=== PATIENT | female | born 2000 | race Caucasian/White ===

== ENCOUNTER 2019-11-27 12:33 | Emergency (ER) | payer OTHER ==
[~2019-11-27] VITALS: Ht 177.8 cm; Wt 77.0 kg
[2019-11-27] MEDS ORDERED: IBUP-577 PO (12:39)
--- NOTE | 2019-11-27 13:04 | PHYS DOC ---
Past History Past Medical History: GERD Past Surgical History: Tonsillectomy, Other Additional Past Surgical Histo: IUD 1-16; RIGHT FOOT SURGERY; ADNOIDECTOMY; WISDOM TEETH REMOVED Alcohol Use: None Adult General Chief Complaint Chief Complaint: ABDOMINAL PAIN [facility] HPI Patient is a 19-year-old female who presents with complaint of lower abdominal cramping with vaginal spotting for about the last 3 months. Patient indicates that she does have an IUD in placed and it was placed back in November 2015. She states that at times pain gets as high as 7 out of 10 but currently is a 3 out of 10. She denies any nausea, vomiting or diarrhea. She denies any fever. Patient is not aware of any exacerbating or alleviating factors.[] Review of Systems Review of Systems Constitutional: Denies fever or chills [] Respiratory: Denies cough or shortness of breath [] Cardiovascular: No additional information not addressed in HPI [] GI: Complains of lower abdominal pain/cramping without vomiting or diarrhea [] Integument: Denies rash or skin lesions [] Neurologic: Denies headache, focal weakness or sensory changes [] All other systems were reviewed and found to be within normal limits, except as documented in this note. Allergies Allergies Allergies Coded Allergies Type Severity Reaction Last Updated Verified No Known Drug Allergies 11/27/19 No Physical Exam Physical Exam Constitutional: Well developed, well nourished, no acute distress, non-toxic appearance. [] HENT: Normocephalic, atraumatic, bilateral external ears normal, oropharynx moist, no oral exudates, nose normal. [] Eyes: PERRLA, EOMI, conjunctiva normal, no discharge. [] Neck: Normal range of motion, no tenderness, supple. [] Cardiovascular: Regular rate and rhythm[] Lungs & Thorax: Bilateral breath sounds clear to auscultation [] Abdomen: Bowel sounds normal, soft, no tenderness. [] Skin: Warm, dry, no erythema, no rash. [] Extremities: No tenderness, no cyanosis, no clubbing, ROM intact. [] Neurologic: Alert and oriented X 3, no focal deficits noted. [] Current Patient Data Vital Signs Vital Signs Date Time Temp Pulse Resp B/P (MAP) Pulse Ox O2 Delivery O2 Flow Rate FiO2 11/27/19 12:40 98.6 71 18 152/82 (105) 100 Room Air EKG EKG [] Radiology/Procedures Radiology/Procedures [] Impressions: COMPARISON: None available FINDINGS: The uterus measures 7.8 x 2.5 x 4.4 cm. The endometrium is 4 mm in thickness.The right ovary measures 1.8 x 2.5 x 3.8 cm. The left ovary measures 3.0 x 2.0 x 2.9 cm. There is a 1.4 cm cystic structure identified in the left ovary could be a follicle containing some echogenicity or a small hemorrhagic cyst. Blood flow identified in the right and left ovaries. IMPRESSION: 1. A 1.4 cm cystic structure containing echogenicity identified in the left ovary could be follicle containing echogenicity or hemorrhagic cyst. Electronically signed by: Oliver Gonzalez MD (11/27/2019 2:01 PM) [facility] Course & Med Decision Making Course & Med Decision Making Pertinent Labs and Imaging studies reviewed. (See chart for details) [] Dragon Disclaimer Dragon Disclaimer This electronic medical record was generated, in whole or in part, using a voice recognition dictation system. Departure Departure: Impression: Primary Impression: Hemorrhagic ovarian cyst Disposition: HOME, SELF-CARE Condition: STABLE Referrals: PCP,UNKNOWN (PCP) Patient Instructions: Ovarian Cyst Scripts Tramadol Hcl (TRAMADOL HCL) 50 Mg Tablet 50 MG PO PRN Q6HRS PRN for PAIN, #12 TAB Prov: VITA YOUNGER Jr. DO 11/27/19 VITA YOUNGER Jr. DO Nov 27, 2019 13:04
--- NOTE | 2019-11-27 14:04 | RAD ---
Examination: Ultrasound pelvis HISTORY: History of pelvic pain with vaginal bleeding COMPARISON: None available FINDINGS: The uterus measures 7.8 x 2.5 x 4.4 cm. The endometrium is 4 mm in thickness.The right ovary measures 1.8 x 2.5 x 3.8 cm. The left ovary measures 3.0 x 2.0 x 2.9 cm. There is a 1.4 cm cystic structure identified in the left ovary could be a follicle containing some echogenicity or a small hemorrhagic cyst. Blood flow identified in the right and left ovaries. IMPRESSION: 1. A 1.4 cm cystic structure containing echogenicity identified in the left ovary could be follicle containing echogenicity or hemorrhagic cyst. Electronically signed by: Oliver Gonzalez MD (11/27/2019 2:01 PM) [place] [id number]
[2019-11-27] MEDS ORDERED: TRAM50TA PO (14:15)
[2019-11-27 14:21] VITALS: BP 138/71
== END 2019-11-27 14:20 | disposition home or self-care (01) ==
LOC: ER 12:33
DX: N83.202 Unspecified ovarian cyst, left side (principal); K21.9 Gastro-esophageal reflux disease without esophagitis; Z90.49 Acquired absence of other specified parts of digestive tract
CPT/HCPCS: 76856; 99284

== ENCOUNTER 2020-02-19 11:35 | Emergency (ER) | payer OTHER ==
[~2020-02-19] VITALS: Ht 177.8 cm; Wt 75.0 kg
[~2020-02-19 11:35] MED LIST: IBUP-577 PO; TRAM50TA PO
[2020-02-19 12:22] LABS: BACTERIA,URINE FEW /HPF (0-FEW); BILIRUBIN,URINE NEG (NEG); CLARITY,URINE CLEAR; COLOR,URINE STRAW; GLUCOSE,URINE NEG (NEG); NITRITE,URINE NEG (NEG); RBC,URINE 0 /HPF (0-2); SQUAMOUS EPITHELIAL CELL,UR FEW /LPF; UROBILINOGEN,URINE 0.2 mg/dL (0.2 mg/dL); WBC,URINE OCC /HPF (0-4)
[2020-02-19 12:23] LABS: U PREG PATIENT NEGATIVE (NEG)
--- NOTE | 2020-02-19 12:33 | RAD ---
PELVIS COMPLETE History: Left pelvic pain, history of cyst Comparison: November 27, 2019 Findings: Multiple transabdominal sonographic images of the pelvis are submitted. Uterus measured 7.8 x 4.4 x 3.2 cm. There is IUD present in the endometrial cavity. Right ovary measured 3.5 x 3.3 x 2 cm, normal low resistance vascularity. Left ovary measured 6.3 x 5.6 x 5.1 cm. There is a hypoechoic lesion of the left ovary about 4.9 x 4.6 x 5 cm. This is larger as previously 1.4 cm, nearly anechoic. There is normal low resistance vascularity and color flow of the left ovary. No significant free fluid is demonstrated. Impression: 1. There is left ovarian cyst up to 5 cm which is larger than previous exam, no free fluid. There is normal vascularity of adjacent left ovarian tissue. Electronically signed by: Darwin Mckay MD (02/19/2020 12:30 PM) [id number]
--- NOTE | 2020-02-19 13:01 | PHYS DOC ---
Past History Past Medical History: GERD Past Surgical History: Tonsillectomy, Other Additional Past Surgical Histo: IUD 1-16; RIGHT FOOT SURGERY; ADNOIDECTOMY; WISDOM TEETH REMOVED Alcohol Use: None Adult General Chief Complaint Chief Complaint: ABDOMINAL PAIN HPI HPI Patient is a 19 year old female who presents with left pelvic pain. She states this feels very similar to when she has had an ovarian cyst previously. She denies any trauma, vaginal bleeding, vaginal pain, dysuria, hematuria, swelling. She has no other complaints. She denies any fever, nausea, vomiting, upper abdominal pain, cough, URI symptoms, decreased appetite. She denies any chance that she could have any sexually transmitted diseases including gonorrhea, chlamydia, trichomonas. She currently has an IUD in place. Review of Systems Review of Systems General: Denies fever, chills, sweats, fatigue Eyes: Denies drainage, blurred vision HENT: Denies rhinorrhea, sore throat Respiratory: Denies cough, shortness of breath, wheezing Cardiac: Denies edema, palpitations, chest pain GI: Denies abdominal pain, N/V MSK: Denies back pain, neck pain Skin: Denies rash, jaundice Neuro: Denies headache, dizziness Psychiatric: Denies SI/HI All other systems were reviewed and found to be within normal limits, except as documented in this note. Allergies Allergies Allergies Coded Allergies Type Severity Reaction Last Updated Verified No Known Drug Allergies 11/27/19 No Physical Exam Physical Exam Constitutional: Well developed, well nourished, Cooperative, NAD, non-toxic appearing HEENT: Normocephalic, atraumatic, oropharynx moist, EOMI, PERRL, no drainage from eyes, normal conjunctiva Neck: Supple, normal range of motion, no stridor Cardiovascular: RRR, 2+ radial pulses bilaterally, no edema Respiratory: CTA bilaterally, no respiratory distress, no wheezing/crackles Abdomen: Soft, nontender, nondistended, no masses Skin: Warm, dry, intact Extremities: No obvious deformities Neurologic: Alert and Oriented x3, motor and sensory function grossly normal, no focal deficits Psychologic: Normal affect, normal judgment, normal mood. No SI/HI Current Patient Data Vital Signs Vital Signs Date Time Temp Pulse Resp B/P (MAP) Pulse Ox O2 Delivery O2 Flow Rate FiO2 02/19/20 11:45 98.1 86 20 150/89 (109) 100 Room Air Lab Results Laboratory Tests Test 02/19/20 11:55 Urine Collection Type Unknown Urine Color Straw Urine Clarity Clear Urine pH 8.0 Urine Specific [place] 1.015 Urine Protein Neg (NEG-TRACE) Urine Glucose (UA) Neg mg/dL (NEG) Urine Ketones (Stick) Neg mg/dL (NEG) Urine Blood Neg (NEG) Urine Nitrite Neg (NEG) Urine Bilirubin Neg (NEG) Urine Urobilinogen Dipstick 0.2 mg/dL (0.2 mg/dL) Urine Leukocyte Esterase Neg (NEG) Urine RBC 0 /HPF (0-2) Urine WBC Occ /HPF (0-4) Urine Squamous Epithelial Cells Few /LPF Urine Bacteria Few /HPF (0-FEW) Urine Test Negative (NEG) EKG EKG [] Radiology/Procedures Radiology/Procedures Pelvis ultrasound shows a 5 cm ovarian cyst without torsion [] Course & Med Decision Making Course & Med Decision Making Pertinent Labs and Imaging studies reviewed. (See chart for details) Patient is 19-year-old female presents to the emergency room with pelvic pain. She has a history of cysts that are large. Ultrasound was ordered to evaluate for ovarian cyst with torsion. Patient does have a cyst but no signs of torsion. She is otherwise well-appearing. She will be discharged home to follow-up with her [employer]S OFFICER. Patient's test results and vitals while in the ED were fully reviewed and discussed with the patient. Patient is stable and at this time does not need admission to the hospital. We have discussed strict return precautions and the importance of following up with their Primary Care Physician. Patient stated understanding and was given an opportunity to ask any questions. Dragon Disclaimer Dragon Disclaimer This electronic medical record was generated, in whole or in part, using a voice recognition dictation system. Departure Departure: Impression: Primary Impression: Ovarian cyst, left Disposition: HOME, SELF-CARE Condition: STABLE Referrals: BETSY HERNANDEZ (PCP) Patient Instructions: Ovarian Cyst SHABANA WHATLEY MD Feb 19, 2020 13:01
[2020-02-19] MEDS: KETOROLAC 30 MG/ML VIAL. IM ONE (13:08)
[2020-02-19 13:10] VITALS: BP 142/88
== END 2020-02-19 13:10 | disposition home or self-care (01) ==
LOC: ER 11:35
DX: N83.202 Unspecified ovarian cyst, left side (principal); K21.9 Gastro-esophageal reflux disease without esophagitis
CPT/HCPCS: 76856; 81001; 81025; 96372; 99284; J1885

== ENCOUNTER 2020-02-21 00:43 | Emergency (ER) | payer OTHER ==
[~2020-02-21] VITALS: Ht 177.8 cm; Wt 78.0 kg
[2020-02-21 00:57] VITALS: BP 151/91
--- NOTE | 2020-02-21 01:21 | PHYS DOC ---
Past History Past Medical History: GERD, Ovarian Cyst Past Surgical History: Tonsillectomy, Other Additional Past Surgical Histo: IUD 1-16; RIGHT FOOT SURGERY; ADNOIDECTOMY; WISDOM TEETH REMOVED Alcohol Use: None General Adult EDM: Chief Complaint: Abdominal pain HPI: HPI: 19-year-old female presents with lower abdominal pain. Patient was seen in this emergency room 2 days ago. She was diagnosed with an ovarian cyst. She has continued to have pain since leaving. She presents in the middle the night because the pain has increased for the last 2 to 3 hours. She is unable to sleep and they told her to come back of her symptoms got worse. She denies fever chills. She has had no nausea or vomiting. No vaginal discharge or bleeding. Review of Systems: Review of Systems: Constitutional: Denies fever or chills Eyes: Denies change in visual acuity HENT: Denies nasal congestion or sore throat Respiratory: Denies cough or shortness of breath Cardiovascular: Denies chest pain or edema GI: Lower abdominal pain. Denies nausea, vomiting, bloody stools or diarrhea : Denies dysuria Musculoskeletal: Denies back pain or joint pain Integument: Denies rash Neurologic: Denies headache, focal weakness or sensory changes Endocrine: Denies polyuria or polydipsia Lymphatic: Denies swollen glands Psychiatric: Denies depression or anxiety Heart Score: Risk Factors: Risk Factors: DM, Current or recent (<one month) smoker, HTN, HLP, family history of CAD, obesity. Risk Scores: Score 0 - 3: 2.5% MACE over next 6 weeks - Discharge Home Score 4 - 6: 20.3% MACE over next 6 weeks - Admit for Clinical Observation Score 7 - 10: 72.7% MACE over next 6 weeks - Early Invasive Strategies Current Medications: Current Meds: Current Medications Medications (Trade) Dose Ordered Sig/[facility] Start Time Stop Time Status Last Admin Dose Admin Morphine Sulfate (Morphine 2mg Syringe) 2 mg 1X ONCE 02/21/20 01:15 02/21/20 01:16 UNV Ondansetron HCl (Zofran) 4 mg 1X ONCE 02/21/20 01:15 02/21/20 01:16 UNV Sodium Chloride 1,000 ml @ 1,000 mls/hr 1X ONCE 02/21/20 01:15 02/21/20 02:14 UNV Allergies: Allergies: Allergies Coded Allergies Type Severity Reaction Last Updated Verified No Known Drug Allergies 11/27/19 No Physical Exam: PE: Constitutional: Well developed, well nourished, no acute distress, non-toxic appearance. [] HENT: Normocephalic, atraumatic, bilateral external ears normal, oropharynx moist, no oral exudates, nose normal. [] Eyes: PERRLA, EOMI, conjunctiva normal, no discharge. [] Neck: Normal range of motion, no tenderness, supple, no stridor. [] Cardiovascular:Heart rate regular rhythm, no murmur [] Lungs & Thorax: Bilateral breath sounds clear to auscultation [] Abdomen: Bowel sounds normal, soft, lower tenderness with mild guarding, no masses, no pulsatile masses. [] Skin: Warm, dry, no erythema, no rash. [] Back: No tenderness, no CVA tenderness. [] Extremities: No tenderness, no cyanosis, no clubbing, ROM intact, no edema. [] Neurologic: Alert and oriented X 3, normal motor function, normal sensory function, no focal deficits noted. [] Psychologic: Affect normal, judgement normal, mood normal. [] Current Patient Data: Vital Signs: Vital Signs Date Time Temp Pulse Resp B/P (MAP) Pulse Ox O2 Delivery O2 Flow Rate FiO2 02/21/20 00:57 98.6 94 20 151/91 (111) 100 Room Air EKG: EKG: [] Radiology/Procedures: Radiology/Procedures: [] Impressions: EXAM: ULTRASOUND PELVIS INDICATION: Pelvic cyst. Last menstrual period was 02/02/2020. COMPARISON: 02/19/2020, 11/27/2019. TECHNIQUE: Transabdominal sonography was performed. FINDINGS: The uterus measures 7.8 x 4.5 x 4.3 cm. cm. The endometrium measures 0.9 cm. There is no focal myometrial abnormality The right ovary measures 4 x 2.9 x 2.1 cm. Flow seen to the right ovary. The left ovary measures 7.1 x 6.4 x 6.5 cm. Left ovarian cystic structure measures 5.8 x 5.2 x 4.9 cm, previously 5 x 4.9 x 4.6 cm. Flow is seen to the left ovary. There is no free fluid. IMPRESSION: 1. Left ovarian cystic structure measures 5.8 cm, intervally increased in size. Recommend short interval follow-up sonographic imaging or further evaluation with MRI, based on gynecologic evaluation. 2. Previously seen IUD is not definitively delineated on this examination, possibly technical or interval removal. Electronically signed by: Clifton Jones MD (02/21/2020 2:44 AM) [facility] DI[facility]ATED AND SIGNED BY: CLIFTON JONES MD DATE: 02/21/204 CC: WILMER TAFOYA DO; BETSY HERNANDEZ ~ Course & Med Decision Making: Course & Med Decision Making Pertinent Labs and Imaging studies reviewed. (See chart for details) The patient's labs are unremarkable. Her urinalysis is negative for infection. She is not . Ultrasound is pending. I have given her 4 mg of Zofran and 2 mg of morphine. The patient continues to have a left ovarian cyst that is larger. She does not have torsion. I have strongly advised that she follow-up with her ship wirer on Sunday to discuss management options for this cyst. She is stable for discharge at this time. I will discharge her with a [place] 5/325 prescription. [] Dragon Disclaimer: Dragon Disclaimer: This electronic medical record was generated, in whole or in part, using a voice recognition dictation system. Departure Departure: Impression: Primary Impression: Ovarian cyst Qualified Codes: N83.202 - Unspecified ovarian cyst, left side Disposition: HOME, SELF-CARE Condition: STABLE Referrals: BETSY HERNANDEZ (PCP) Patient Instructions: Ovarian Cyst, [id number] Scripts Hydrocodone Bit/Acetaminophen (NORCO 5-325 TABLET) 1 Each Tablet 1 TAB PO PRN Q6HRS PRN for PAIN, #14 TAB 0 Refills Prov: WILMER TAFOYA DO 02/21/20 WILMER TAFOYA DO Feb 21, 2020 01:21
[2020-02-21] MEDS ORDERED: IV NORMAL SALINE 1,000ML 1,000 ML IV ONE (01:30)
[2020-02-21] MEDS ORDERED: MORPHINE SULFATE 2 MG/ML DISP.SYRIN. IV ONE (01:30)
[2020-02-21] MEDS ORDERED: ONDANSETRON PF 4 MG/2 ML VIAL. IVP ONE (01:30)
[2020-02-21 02:14] LABS: CALCIUM 8.9 mg/dL (8.5-10.1); CREATININE 0.8 mg/dL (0.6-1.0); GFR 90.5; POTASSIUM 3.4 mmol/L (3.5-5.1)
[2020-02-21 02:17] LABS: CLARITY,URINE CLEAR; COLOR,URINE STRAW
[2020-02-21 02:18] LABS: BILIRUBIN,URINE NEG (NEG); GLUCOSE,URINE NEG (NEG); NITRITE,URINE NEG (NEG); RBC,URINE 0 /HPF (0-2); UROBILINOGEN,URINE 0.2 mg/dL (0.2 mg/dL); WBC,URINE 0 /HPF (0-4)
[2020-02-21 02:19] LABS: BASO % 1 % (0-3); EOS # 0.1 x10^3/uL (0.0-0.7); EOS % 2 % (0-3); HEMATOCRIT 39.4 % (36.0-47.0); HEMOGLOBIN 13.2 g/dL (12.0-15.5); LYMPH # 2.5 x10^3/uL (1.0-4.8); LYMPH % 42 % (24-48); MEAN CORPUSCULAR HEMOGLOBIN 31 pg (25-35); MEAN CORPUSCULAR HGB CONC 34 g/dL (31-37); MEAN CORPUSCULAR VOLUME 91 fL (79-100); MONO # 0.6 x10^3/uL (0.0-1.1); MONO % 9 % (0-9); NEUT # 2.8 x10^3uL (1.8-7.7); NEUT % 47 % (31-73); PLATELET COUNT 181 x10^3/uL (140-400); RED BLOOD COUNT 4.34 x10^6/uL (3.50-5.40); RED CELL DISTRIBUTION WIDTH 12.8 % (11.5-14.5)
[2020-02-21 02:20] LABS: ALBUMIN 3.8 g/dL (3.4-5.0); ALBUMIN/GLOBULIN RATIO 1.3 (1.0-1.7); TOTAL BILIRUBIN 0.2 mg/dL (0.2-1.0); TOTAL PROTEIN 6.8 g/dL (6.4-8.2)
[2020-02-21 02:23] LABS: BACTERIA,URINE FEW /HPF (0-FEW)
[2020-02-21 02:24] LABS: AMORPHOUS SEDIMENT,UR PRESENT /HPF; SQUAMOUS EPITHELIAL CELL,UR OCC /LPF
[2020-02-21] MEDS ORDERED: HYDR-3165 PO (02:35)
--- NOTE | 2020-02-21 02:47 | RAD ---
EXAM: ULTRASOUND PELVIS INDICATION: Pelvic cyst. Last menstrual period was 02/02/2020. COMPARISON: 02/19/2020, 11/27/2019. TECHNIQUE: Transabdominal sonography was performed. FINDINGS: The uterus measures 7.8 x 4.5 x 4.3 cm. cm. The endometrium measures 0.9 cm. There is no focal myometrial abnormality The right ovary measures 4 x 2.9 x 2.1 cm. Flow seen to the right ovary. The left ovary measures 7.1 x 6.4 x 6.5 cm. Left ovarian cystic structure measures 5.8 x 5.2 x 4.9 cm, previously 5 x 4.9 x 4.6 cm. Flow is seen to the left ovary. There is no free fluid. IMPRESSION: 1. Left ovarian cystic structure measures 5.8 cm, intervally increased in size. Recommend short interval follow-up sonographic imaging or further evaluation with MRI, based on gynecologic evaluation. 2. Previously seen IUD is not definitively delineated on this examination, possibly technical or interval removal. Electronically signed by: Clifton Jones MD (02/21/2020 2:44 AM) [facility]ANNIE
== END 2020-02-21 03:05 | disposition home or self-care (01) ==
LOC: ER 00:43
DX: N83.202 Unspecified ovarian cyst, left side (principal); R10.30 Lower abdominal pain, unspecified; K21.9 Gastro-esophageal reflux disease without esophagitis; Z90.89 Acquired absence of other organs; Z98.890 Other specified postprocedural states
CPT/HCPCS: 36415; 76856; 80053; 81001; 81025; 85025; 96374; 96375; 99284; J2270; J2405; J7030

== ENCOUNTER 2020-04-01 20:51 | Emergency (ER) | payer OTHER ==
[~2020-04-01] VITALS: Ht 177.8 cm; Wt 75.0 kg
[~2020-04-01 20:51] MED LIST changes: +HYDR-3165 PO
--- NOTE | 2020-04-01 21:02 | PHYS DOC ---
Past History Past Medical History: GERD, Ovarian Cyst Past Surgical History: Tonsillectomy, Other Additional Past Surgical Histo: IUD 1-16; RIGHT FOOT SURGERY; ADNOIDECTOMY; WISDOM TEETH REMOVED Alcohol Use: None General Adult EDM: Chief Complaint: ABDOMINAL PAIN HPI: HPI: ".. I got severe... pain down here on the right. mid way.... it started about 5 pm... 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 Pain is just below umbilicus level in standing position. Patient states this pain seems different than her previous episodes of ovarian cyst pain. Patient denies any trauma. Patient denies any intake of bad food. Patient last ate at noon consisting of a chicken sandwich.. Did have a normal stool today. No history of colitis with her or family members. No history of renal stones with her or family members. Was last ov [place] to [place] approximately a year ago. No recent travel outside the [place] area. Patient rates her pain as 6 out of 10. Patient has had 3 previous evaluations for ovarian cyst in the emergency department.. Has had 2 lifetime sexual partners. No history of STDs. Patient is on control - oral . Review of Systems: Review of Systems: Constitutional: Denies fever or chills Eyes: Denies change in visual acuity HENT: Denies nasal congestion or sore throat Respiratory: Denies cough or shortness of breath Cardiovascular: Denies chest pain or edema GI: Complains of abdominal pain, nausea. Patient denies vomiting, bloody stools or diarrhea : Denies dysuria Musculoskeletal: Denies back pain or joint pain Integument: Denies rash Neurologic: Denies headache, focal weakness or sensory changes Endocrine: Denies polyuria or polydipsia Lymphatic: Denies swollen glands Psychiatric: Denies depression or anxiety Heart Score: Risk Factors: Risk Factors: DM, Current or recent (<one month) smoker, HTN, HLP, family history of CAD, obesity. Risk Scores: Score 0 - 3: 2.5% MACE over next 6 weeks - Discharge Home Score 4 - 6: 20.3% MACE over next 6 weeks - Admit for Clinical Observation Score 7 - 10: 72.7% MACE over next 6 weeks - Early Invasive Strategies Family History: Family History: Noncontributory to presentation Current Medications: Current Meds: See nursing for home medications Allergies: Allergies: Allergies Coded Allergies Type Severity Reaction Last Updated Verified No Known Drug Allergies 11/27/19 No Physical Exam: PE: Constitutional: Well developed, well nourished, moderate acute distress, non- toxic appearance. [] HENT: Normocephalic, atraumatic, bilateral external ears normal, oropharynx moist, no oral exudates, nose normal. [] Eyes: PERRLA, EOMI, conjunctiva normal, no discharge. [] Neck: Normal range of motion, no tenderness, supple, no stridor. [] Cardiovascular:Heart rate regular rhythm, no murmur [] Lungs & Thorax: Bilateral breath sounds clear to auscultation [] Abdomen: Bowel sounds normal, soft, right lower mid quadrant tenderness, no masses, distended, no pulsatile masses. [] No flank pain on percussion. Rebound to right lower mid quadrant. No complaints of vaginal discharge. Declined pelvic exam at this time. Skin: Warm, dry, no erythema, no rash. [] Back: No tenderness, no CVA tenderness. [] Extremities: No tenderness, no cyanosis, no clubbing, ROM intact, no edema. [] No true psoas sign. Neurologic: Alert and oriented X 3, normal motor function, normal sensory func tion, no focal deficits noted. [] Psychologic: Affect anxious, judgement normal, mood normal. [] EKG: EKG: [] Radiology/Procedures: Radiology/Procedures: [[address] [address] IMAGING REPORT Signed PATIENT: LORA GREENWOOD ACCOUNT: [id number] : 2000 LOCATION: ER AGE: 19 SEX: F EXAM STATUS: REG ER ORD. PHYSICIAN: ASH ZEE MD REASON: Right sided abdomen pain. Hx: GERD, ovarian cysts PROCEDURE: CT ABD PELV W/ORAL&IV CONTRAST PQRS Compliance Statement: One or more of the following individualized dose reduction techniques were utilized for this examination: 1. Automated exposure control 2. Adjustment of the mA and/or kV according to patient size 3. Use of iterative reconstruction technique CT ABD PELV W/ORAL IV CONTRAST Clinical Indication: Right sided abdomen pain. Hx: GERD, ovarian cysts. Comparison: None. Technique: Helical CT imaging of the abdomen and pelvis is performed after 75 cc of Omnipaque 300 IV contrast. Oral contrast also administered. Findings: The lung bases are clear. The cardiac size is normal. There is periportal edema, correlate to whether there has been recent IV hydration in this young patient. The liver is homogeneous. The gallbladder, spleen, pancreas, adrenal glands, abdominal aorta, and kidneys are normal. The stomach is unremarkable. There is no dilated small bowel. The appendix is normal. Scattered stool in the colon. There is no colon wall thickening. No abdominal adenopathy or free fluid. The urinary bladder is normal. IUD in the uterus. No pelvic free fluid. No acute bone abnormality. IMPRESSION: No acute abdominal or pelvic abnormality. Electronically signed by: Robby Capone MD (04/01/2020 11:44 PM) [facility] DICTATED AND SIGNED BY: ROBBY CAPONE MD DATE: 04/01/202343 CC: ASH ZEE MD; BETSY HERNANDEZ INTERACTIVE [employer] MARKETING STRATEGIST-C ~ ][place] [address] IMAGING REPORT Signed PATIENT: LORA GREENWOOD ACCOUNT: [id number] : 2000 LOCATION: ER AGE: 19 SEX: F EXAM STATUS: REG ER ORD. PHYSICIAN: ASH ZEE MD REASON: Right sided abdomen pain PROCEDURE: ACUTE ABDOMEN SERIES ACUTE ABDOMEN SERIES INDICATION: Reason: Right sided abdomen pain / Spl. Instructions: / History: . COMPARISON STUDY: None. FINDINGS: Lungs: Normal lung volume. No pulmonary mass or consolidation. The tracheobronchial tree and hilar structures are normal. Pleura: No pleural effusion or pneumothorax. Heart and Mediastinum: The cardiomediastinal silhouette is normal. The great vessels of the thorax are normal. Abdomen: Nonobstructive bowel gas pattern. No free air. Large colonic stool burden. IUD overlying the pelvis. IMPRESSION: 1. Nonobstructive bowel gas pattern. 2. Large colonic stool burden, which may reflect constipation. 3. No focal airspace disease. Electronically signed by: Prudence Soto MD (04/01/2020 10:33 PM) [id number] DICTATED AND SIGNED BY: PRUDENCE SOTO MD DATE: 04/01/202232 CC: ASH ZEE MD; BETSY HERNANDEZ ~ Course & Med Decision Making: Course & Med Decision Making Pertinent Labs and Imaging studies reviewed. (See chart for details) Pt.to stay on clear fluid diet only x 48 hrs. Follow up with primary. Tylenol and Ibuprofen for pain. Re-exam if continue pain in next 48hrs. Must follow up., Return if any concerns. Impression: 1. Abdomen Pain 2. Constipation 3. History of ovarian cyst [] Oscar Disclaimer: Oscar Disclaimer: This electronic medical record was generated, in whole or in part, using a voice recognition dictation system. Departure Departure: Disposition: 01 HOME/RESIDENCE PRIOR TO ADM Condition: STABLE Referrals: BETSY HERNANDEZ (PCP) Oscar Disclaimer This chart was dictated in whole or in part using Voice Recognition software in a busy, high-work load, and often noisy Emergency Department environment. It may contain unintended and wholly unrecognized errors or omissions. ASH ZEE MD April 01, 2020 21:02
[2020-04-01] MEDS ORDERED: IV RINGERS SOLUTION,LACTATED 1,000 ML IV SCH (21:12)
[2020-04-01] MEDS ORDERED: FAMOTIDINE 20 MG/2 ML VIAL IVP ONE (21:15)
[2020-04-01] MEDS ORDERED: ONDANSETRON PF 4 MG/2 ML VIAL. IVP ONE (21:15)
[2020-04-01 21:25] LABS: BASO % 0 % (0-3); EOS % 0 % (0-3); HEMATOCRIT 39.9 % (36.0-47.0); HEMOGLOBIN 13.6 g/dL (12.0-15.5); LYMPH # 1.3 x10^3/uL (1.0-4.8); LYMPH % 19 % (24-48); MEAN CORPUSCULAR HEMOGLOBIN 31 pg (25-35); MEAN CORPUSCULAR HGB CONC 34 g/dL (31-37); MEAN CORPUSCULAR VOLUME 92 fL (79-100); MONO # 0.4 x10^3/uL (0.0-1.1); MONO % 5 % (0-9); NEUT # 5.5 x10^3uL (1.8-7.7); NEUT % 76 % (31-73); PLATELET COUNT 185 x10^3/uL (140-400); RED BLOOD COUNT 4.35 x10^6/uL (3.50-5.40); RED CELL DISTRIBUTION WIDTH 12.9 % (11.5-14.5); WHITE BLOOD COUNT 7.2 x10^3/uL (4.0-11.0)
[2020-04-01 21:34] LABS: CALCIUM 9.3 mg/dL (8.5-10.1); CREATININE 0.7 mg/dL (0.6-1.0); GFR 105.6; POTASSIUM 3.4 mmol/L (3.5-5.1)
[2020-04-01 21:41] LABS: ALBUMIN 4.1 g/dL (3.4-5.0); DIRECT BILIRUBIN 0.1 mg/dL (0.0-0.2); TOTAL BILIRUBIN 0.3 mg/dL (0.2-1.0); TOTAL PROTEIN 7.5 g/dL (6.4-8.2)
[2020-04-01 21:58] LABS: U PREG PATIENT NEGATIVE (NEG)
[2020-04-01 22:01] LABS: BILIRUBIN,URINE NEG (NEG); CLARITY,URINE CLEAR; COLOR,URINE YELLOW; GLUCOSE,URINE NEG (NEG)
[2020-04-01 22:02] LABS: NITRITE,URINE NEG (NEG); UROBILINOGEN,URINE 0.2 mg/dL (0.2 mg/dL)
[2020-04-01 22:06] LABS: BACTERIA,URINE FEW /HPF (0-FEW); RBC,URINE 0 /HPF (0-2); SQUAMOUS EPITHELIAL CELL,UR FEW /LPF; WBC,URINE 0 /HPF (0-4)
[2020-04-01] MEDS ORDERED: IOHEXOL 300 MG/ML 75 ML VIAL. IV ONE (22:15)
[2020-04-01] MEDS ORDERED: IOHEXOL 240 MG/ML 50ML VIAL. PO ONE (22:15)
--- NOTE | 2020-04-01 22:36 | RAD ---
ACUTE ABDOMEN SERIES INDICATION: Reason: Right sided abdomen pain / Spl. Instructions: / History: . COMPARISON STUDY: None. FINDINGS: Lungs: Normal lung volume. No pulmonary mass or consolidation. The tracheobronchial tree and hilar structures are normal. Pleura: No pleural effusion or pneumothorax. Heart and Mediastinum: The cardiomediastinal silhouette is normal. The great vessels of the thorax are normal. Abdomen: Nonobstructive bowel gas pattern. No free air. Large colonic stool burden. IUD overlying the pelvis. IMPRESSION: 1. Nonobstructive bowel gas pattern. 2. Large colonic stool burden, which may reflect constipation. 3. No focal airspace disease. Electronically signed by: Darwin Soto MD (04/01/2020 10:33 PM) [id number]
[2020-04-01] MEDS ORDERED: MAGNESIUM HYDROXIDE 2,400 MG/30 ML ORAL.SUSP. PO ONE (23:00)
[2020-04-01] MEDS ORDERED: KETOROLAC 30 MG/ML VIAL. IVP ONE (23:30)
--- NOTE | 2020-04-01 23:47 | RAD ---
PQRS Compliance Statement: One or more of the following individualized dose reduction techniques were utilized for this examination: 1. Automated exposure control 2. Adjustment of the mA and/or kV according to patient size 3. Use of iterative reconstruction technique CT ABD PELV W/ORAL IV CONTRAST Clinical Indication: Right sided abdomen pain. Hx: GERD, ovarian cysts. Comparison: None. Technique: Helical CT imaging of the abdomen and pelvis is performed after 75 cc of Omnipaque 300 IV contrast. Oral contrast also administered. Findings: The lung bases are clear. The cardiac size is normal. There is periportal edema, correlate to whether there has been recent IV hydration in this young patient. The liver is homogeneous. The gallbladder, spleen, pancreas, adrenal glands, abdominal aorta, and kidneys are normal. The stomach is unremarkable. There is no dilated small bowel. The appendix is normal. Scattered stool in the colon. There is no colon wall thickening. No abdominal adenopathy or free fluid. The urinary bladder is normal. IUD in the uterus. No pelvic free fluid. No acute bone abnormality. IMPRESSION: No acute abdominal or pelvic abnormality. Electronically signed by: Robby Capone MD (04/01/2020 11:44 PM) [facility]
[2020-04-02 00:12] VITALS: BP 113/69
== END 2020-04-02 00:25 | disposition home or self-care (01) ==
LOC: ER 20:51
DX: K59.00 Constipation, unspecified (principal); K21.9 Gastro-esophageal reflux disease without esophagitis
CPT/HCPCS: 36415; 74022; 74177; 80048; 80076; 81001; 81025; 82150; 83690; 84702; 85025; 85610; 85730; 96374; 96375; 99285; J2405; J3490; J7120; Q9966; Q9967

== ENCOUNTER 2021-02-24 09:30 | Emergency (ER) | payer OTHER ==
[~2021-02-24] VITALS: Ht 177.8 cm; Wt 73.0 kg
[2021-02-24 09:40] VITALS: BP 133/83
[2021-02-24] MEDS ORDERED: KETOROLAC 15 MG/ML VIAL. IVP ONE (10:15)
--- NOTE | 2021-02-24 10:26 | PHYS DOC ---
Past History Past Medical History: GERD, Ovarian Cyst Past Surgical History: Tonsillectomy, Other Additional Past Surgical Histo: IUD 1-16; RIGHT FOOT SURGERY; ADNOIDECTOMY; WISDOM TEETH REMOVED Alcohol Use: Rarely General Adult EDM: Chief Complaint: ABDOMINAL PAIN HPI: HPI: Patient is a 18-year-old female coming in for 9 days of right lower quadrant abdominal pain. States the pain is sharp and intermittent. Has overall not gotten worse or better. States she has had decreased appetite but denies any vomiting, diarrhea, fevers, vaginal discharge, vaginal pain, dysuria. Patient s aid her menstrual cycle started 2 days ago. Patient states she has a history of ovarian cyst, denies any prior abdominal surgeries. No known sick contacts. States she otherwise has been well. The pain is worse with some movement and when she rolls over on her right side Review of Systems: Review of Systems: All other systems within normal limits except for as noted in the HPI Current Medications: Current Meds: Current Medications Medications (Trade) Dose Ordered Sig/Roberto Start Time Stop Time Status Last Admin Dose Admin Ketorolac Tromethamine (Toradol 15mg Vial) 15 mg 1X ONCE 02/24/21 10:15 02/24/21 10:20 DC Allergies: Allergies: Allergies Coded Allergies Type Severity Reaction Last Updated Verified No Known Drug Allergies 02/24/21 No Physical Exam: PE: Constitutional: Well developed, well nourished, no acute distress, non-toxic appearance. [] HENT: Normocephalic, atraumatic, bilateral external ears normal, nose normal. [] Eyes: PERRLA, conjunctiva normal, no discharge. [] Neck: No rigidity, supple, no stridor. [] Cardiovascular: Regular rate and rhythm, brisk cap refill [] Lungs & Thorax: Non labored symmetric respirations, no tachypnea or respiratory distress [] Abdomen: Soft, nondistended, negative Gifford's sign, right lower quadrant roxana tenderness without significant guarding. Positive Rovsing sign and rebound tenderness. Skin: Warm, dry, no erythema, no rash. [] Back: Unremarkable Extremities: No deformities, range of motion grossly intact, no lower extremity edema [] Neurologic: Alert and oriented X 3, no focal deficits noted. [] Psychologic: Affect normal, judgement normal, mood normal. [] Current Patient Data: Labs: Laboratory Tests Test 02/24/21 10:00 POC Urine HCG, Qualitative hcg negative (Negative) Vital Signs: Vital Signs Date Time Temp Pulse Resp B/P (MAP) Pulse Ox O2 Delivery O2 Flow Rate FiO2 02/24/21 09:40 98.1 82 18 133/83 (100) 99 EKG: EKG: [] Radiology/Procedures: Radiology/Procedures: CT ABDOMEN+PELVIS W History: RLQ pain Comparison: None. Technique: After administration of intravenous contrast, helical CT of the abdomen and pelvis was performed from the lung bases through the ischial tuberosities. Coronal and sagittal reconstructions were obtained. 75 mL of Omnipaque 300 were used. One or more of the following dose reduction techniques were utilized: Automated exposure control (AEC), Adjustment of mA and/or kV according to patient size, Use of iterative reconstruction technique such as ASiR, CT scan done according to ALARA and image gently/image wisely Abdomen Findings: The visualized lung bases are clear. The liver, gallbladder, pancreas, spleen, and bilateral adrenal glands are normal. Symmetric renal enhancement. There is no focal renal mass. There is no hydronephrosis. The visualized loops of small bowel are normal. Normal caliber large bowel. Large colonic stool burden There is no evidence of bowel obstruction. Appendix is retrocecal and otherwise normal. There is no free fluid. There is no mesenteric or retroperitoneal adenopathy. The abdominal aorta is normal in caliber. Pelvis Findings: Urinary bladder is normal. Uterus is present with IUD in place. Left adnexal 3.9 cm cyst, likely physiologic in a patient of this age. No pelvic free fluid. There is no pelvic or inguinal adenopathy. There is no acute bony abnormality. IMPRESSION: 1. No acute findings. 2. Large colonic stool burden, which may reflect constipation. [] Heart Score: C/O Chest Pain: No Risk Factors: Risk Factors: DM, Current or recent (<one month) smoker, HTN, HLP, family history of CAD, obesity. Risk Scores: Score 0 - 3: 2.5% MACE over next 6 weeks - Discharge Home Score 4 - 6: 20.3% MACE over next 6 weeks - Admit for Clinical Observation Score 7 - 10: 72.7% MACE over next 6 weeks - Early Invasive Strategies Course & Med Decision Making: Course & Med Decision Making Pertinent Labs and Imaging studies reviewed. (See chart for details) [] Dragon Disclaimer: Dragon Disclaimer: This electronic medical record was generated, in whole or in part, using a voice recognition dictation system. Departure Departure: Impression: Primary Impression: Abdominal pain Additional Impression: Constipation Disposition: HOME / SELF CARE / HOMELESS Condition: STABLE Referrals: PCP,UNKNOWN (PCP) Patient Instructions: Constipation, Adult Additional Instructions: Take [id number] magnesium citrate and increase fluid intake FIFI MARTÍNEZ MD Feb 24, 2021 10:26
[2021-02-24 10:29] LABS: BASO % 1 % (0-3); EOS % 1 % (0-3); LYMPH # 1.3 x10^3/uL (1.0-4.8); LYMPH % 32 % (24-48); MEAN CORPUSCULAR HEMOGLOBIN 32 pg (25-35); MEAN CORPUSCULAR HGB CONC 35 g/dL (31-37); MEAN CORPUSCULAR VOLUME 90 fL (79-100); MONO # 0.3 x10^3/uL (0.0-1.1); MONO % 7 % (0-9); NEUT # 2.3 x10^3uL (1.8-7.7); NEUT % 60 % (31-73); PLATELET COUNT 186 x10^3/uL (140-400); RED BLOOD COUNT 4.43 x10^6/uL (3.50-5.40); RED CELL DISTRIBUTION WIDTH 12.9 % (11.5-14.5); WHITE BLOOD COUNT 3.9 x10^3/uL (4.0-11.0)
[2021-02-24] MEDS ORDERED: IOHEXOL 300 MG/ML 75 ML VIAL. IV ONE (10:30)
[2021-02-24 10:38] LABS: CREATININE 0.8 mg/dL (0.6-1.0); GFR 89.7; POTASSIUM 3.7 mmol/L (3.5-5.1)
[2021-02-24 10:44] LABS: ALBUMIN 4.1 g/dL (3.4-5.0); ALBUMIN/GLOBULIN RATIO 1.2 (1.0-1.7); TOTAL BILIRUBIN 0.6 mg/dL (0.2-1.0); TOTAL PROTEIN 7.5 g/dL (6.4-8.2)
[2021-02-24 10:46] LABS: BACTERIA,URINE 0 /HPF (0-FEW); BILIRUBIN,URINE NEG (NEG); CLARITY,URINE CLEAR; COLOR,URINE YELLOW; GLUCOSE,URINE NEG (NEG); NITRITE,URINE NEG (NEG); RBC,URINE 0 /HPF (0-2); SQUAMOUS EPITHELIAL CELL,UR MOD /LPF; UROBILINOGEN,URINE 0.2 mg/dL (0.2 mg/dL)
--- NOTE | 2021-02-24 10:57 | RAD ---
CT ABDOMEN+PELVIS W History: RLQ pain Comparison: None. Technique: After administration of intravenous contrast, helical CT of the abdomen and pelvis was per formed from the lung bases through the ischial tuberosities. Coronal and sagittal reconstructions wer e obtained. 75 mL of Omnipaque 300 were used. One or more of the following dose reduction techniques were utilized: Automated exposure control (AEC), Adjustment of mA and/or kV according to patient size , Use of iterative reconstruction technique such as ASiR, CT scan done according to ALARA and image g ently/image wisely Abdomen Findings: The visualized lung bases are clear. The liver, gallbladder, pancreas, spleen, and bilateral adrenal glands are normal. Symmetric renal enhancement. There is no focal renal mass. There is no hydronephrosis. The visualized loops of small bowel are normal. Normal caliber large bowel. Large colonic stool burde n There is no evidence of bowel obstruction. Appendix is retrocecal and otherwise normal. There is no free fluid. There is no mesenteric or retroperitoneal adenopathy. The abdominal aorta is normal in caliber. Pelvis Findings: Urinary bladder is normal. Uterus is present with IUD in place. Left adnexal 3.9 cm cyst, likely phys iologic in a patient of this age. No pelvic free fluid. There is no pelvic or inguinal adenopathy. There is no acute bony abnormality. IMPRESSION: 1. No acute findings. 2. Large colonic stool burden, which may reflect constipation. Electronically signed by: Darwin Soto MD (02/24/2021 10:55 AM) [id number]
== END 2021-02-24 11:40 | disposition home or self-care (01) ==
LOC: ER 09:30
DX: K59.00 Constipation, unspecified (principal); R10.31 Right lower quadrant pain; K21.9 Gastro-esophageal reflux disease without esophagitis
CPT/HCPCS: 36415; 74177; 80053; 81001; 81025; 83690; 85025; 96374; 99285; J1885; Q9967